=== PATIENT | female | born 1950 | race Caucasian/White ===

== ENCOUNTER 2018-12-03 07:55 | Outpatient (CLI) | payer OTHER | END 2018-12-03 07:57 | disposition home or self-care (01) | LOC: SONOGRAMA 07:55 | DX: E04.1 Nontoxic single thyroid nodule (principal) ==

== ENCOUNTER 2019-09-13 09:05 | Outpatient (CLI) | payer OTHER | END 2019-09-13 09:24 | disposition home or self-care (01) | LOC: SONOGRAMA 09:05 | DX: E03.8 Other specified hypothyroidism (principal) ==

== ENCOUNTER → 2019-09-13 | Emergency (ER) | payer OTHER ==
[~2019-09-13] VITALS: Ht 160 cm; Wt 64.4 kg
== END | disposition left against medical advice (07) ==
LOC: ER 11:22
DX: Z53.20 Procedure and treatment not carried out because of patient's decision for unspecified reasons (principal)

== ENCOUNTER 2021-09-03 08:15 | Outpatient (CLI) | payer OTHER | END 2021-09-03 08:20 | disposition home or self-care (01) | LOC: PPH VACUNA 08:15 | PROVIDERS: ATTEND Emergency Medicine Pediatric Emergency Medicine | DX: Z23 Encounter for immunization (principal) ==